=== PATIENT | male | born 1990 | race Caucasian/White ===

== ENCOUNTER 2018-09-19 06:10 | Day surgery (SDC) | payer BC ==
[~2018-09-19] VITALS: Ht 180.3 cm; Wt 89.5 kg
[2018-09-19] VITALS (9 sets, daily range): BP systolic 108–135; BP diastolic 60–94; Ht 180.3 cm; Wt 89.5 kg
[~2018-09-19 06:10] MED LIST: DEXILANT30 MG PO; ELAVIL10 MG PO
[2018-09-19] MEDS ORDERED: HYDROCODON-ACE1 EAC7 PO (13:32)
[2018-09-20 05:04] VITALS: BP 87/45
[2018-09-20 05:07] LABS: BASOPHILS 0 % (0-2); EOSINOPHILS 0.3 % (0-7); IMMATURE GRANULOCYTES 0.2 % (0-5); MCH 31.8 pg (26.0-34.0); MCHC 34.9 g/dL (31.0-37.0); MCV 91.1 fL (80.0-100.0); MEAN PLATELET VOLUME 10.6 fL (7.4-10.4); MONOCYTES 12.4 % (2-11); NEUTROPHILS 70.1 % (40-80); PLATELET COUNT 160 10x3/uL (130-400); RBC 4.72 10x6/uL (4.20-6.10); RDW 12.4 % (11.5-14.5); WBC 10.1 10x3/uL (4.8-10.8)
[2018-09-20 05:20] LABS: CALC OSMOLALITY 281 mosm/kg (275-300); CALCIUM 8.3 mg/dL (8.5-10.1); CARBON DIOXIDE 27.7 mmol/L (21.0-32.0); CHLORIDE - SERUM 106 mmol/L (98-107); CREATININE - SERUM 0.9 mg/dL (0.6-1.3); GLUCOSE 126 mg/dL (74-106); MAGNESIUM - SERUM 1.8 mg/dL (1.8-2.4); SODIUM 141 mmol/L (136-145); UREA NITROGEN 9 mg/dL (7-18); eGFR NON AFRICAN AMERICAN > 90 mL/min (90-120)
[2018-09-20 08:18] VITALS: BP 119/76
[2018-09-20] MEDS ORDERED: OXYCODONE HCL5 M1 PO (09:00)
[2018-09-20] MEDS ORDERED: ZOFRAN ODT4 MG/UDTAB PO (09:00)
[2018-09-20] MEDS ORDERED: FLOMAX0.4 MG PO (10:00)
== END 2018-09-20 10:48 | disposition home or self-care (01) ==
LOC: D.OPS 06:10 → D.PAN 08:00 → D.OPS 08:00 → D.MS 10:42 → D.OPS 09-20 10:48
PROVIDERS: Surgery
DX: K21.9 Gastro-esophageal reflux disease without esophagitis (principal); K44.9 Diaphragmatic hernia without obstruction or gangrene

== ENCOUNTER 2019-03-15 05:56 | Day surgery (SDC) | payer BC ==
[~2019-03-15] VITALS: Ht 177.8 cm; Wt 77.7 kg
[~2019-03-15 05:56] MED LIST changes: +FLOMAX0.4 MG PO; +HYDROCODON-ACE1 EAC7 PO; +OXYCODONE HCL5 M1 PO; +ZOFRAN ODT4 MG/UDTAB PO
[2019-03-15] MEDS ORDERED: VALIUM5 MG PO (06:50)
[2019-03-15 06:53] VITALS: BP 118/77; Ht 177.8 cm; Wt 77.7 kg
--- NOTE | 2019-03-15 08:20 | NUR ---
0818 BALLOON DILITATION 7-12 FOR 3 MINUTES WITH GOOD RESULTS
--- NOTE | 2019-03-15 08:26 | NUR ---
0826 14/5 BALLOON FOR 2 MINS 44.5
--- NOTE | 2019-03-15 09:39 | NUR ---
0930-DISCHARGE INSTRUCTIONS REVIEWED 0935-D/C HOME VIA WHEELCHAIR WITH FAMILY
== END 2019-03-15 09:35 | disposition home or self-care (01) ==
LOC: D.OPS 05:56
PROVIDERS: ATTEND Surgery
DX: R13.10 Dysphagia, unspecified (principal); Z01.812 Encounter for preprocedural laboratory examination

== ENCOUNTER 2019-05-25 06:25 | Day surgery (SDC) | payer BC ==
[~2019-05-25] VITALS: Ht 180.3 cm; Wt 77.3 kg
[~2019-05-25 06:25] MED LIST changes: +VALIUM5 MG PO
[2019-05-25] MEDS ORDERED: XANAX XR0.5 MG PO (08:00)
[2019-05-25 08:07] VITALS: BP 109/78; Ht 180.3 cm; Wt 77.3 kg
--- NOTE | 2019-05-25 09:40 | NUR ---
PATIENT AMBULATES TO BATHROOM AND VOIDS IN TOILET, AMBULATES WITHOUT DIZZINESS OR UNSTEADINESS. DISCHARGE INSTRUCTIONS REVIEWED WITH PATIENT
--- NOTE | 2019-05-25 09:49 | NUR ---
DISCHARGED HOME VIA WHEELCHAIR TO PRIVATE VEHILCE WITH MOTHER
== END 2019-05-25 09:49 | disposition home or self-care (01) ==
LOC: D.OPS 06:25
PROVIDERS: ATTEND Surgery
DX: R13.10 Dysphagia, unspecified (principal); K29.80 Duodenitis without bleeding; Z01.812 Encounter for preprocedural laboratory examination

== ENCOUNTER → 2019-06-22 12:34 | Outpatient (CLI) | payer BC ==
[2019-05-25 08:07] VITALS: BMI 23.7
[~2019-06-22 12:34] MED LIST changes: +XANAX XR0.5 MG PO
== END | disposition home or self-care (01) ==
LOC: D.RAD 12:34
PROVIDERS: ATTEND Family Medicine
DX: R13.14 Dysphagia, pharyngoesophageal phase (principal)

== ENCOUNTER 2020-05-27 07:30 | Inpatient (IN) | payer BC ==
[~2020-05-27] VITALS: Ht 180.3 cm; Wt 88.6 kg
[~2020-05-27 07:30] MED LIST changes: +REMERON30 MG PO
[2020-05-27 08:29] VITALS: BP 118/72; BMI 27.2
--- NOTE | 2020-05-27 11:14 | NUR ---
1114 PATIENT AROUSABLE, OPA DISCONTINUED. MAINTAINING PATENT AIRWAY
[2020-05-27 12:01] VITALS: BP 139/79
--- NOTE | 2020-05-27 12:05 | NUR ---
REC'D TO ROOM 2233 VIA STRETCHER EASILY TO AROUSED WHEN NAME IS CALLED. RESP EVEN AND UNLABORED WITH NO DISTRESS NOTED. CAN EXPRESS NEEDS AND WANTS. NO C/O NOTED OR VOICED AT THIS TIME. 5 LAP SITED NOTED TO ABD. RESTING WELL AT THIS TIME. C/L IN REACH A BEDSIDE.
--- NOTE | 2020-05-27 14:29 | NUR ---
BOLUS GIVEN AT THIS TIME. C/L IN REACH AT BEDSIDE.
[2020-05-27 15:57] VITALS: Ht 180.3 cm; Wt 88.6 kg
[2020-05-27 17:02] VITALS: BP 119/73
--- NOTE | 2020-05-27 19:00 | NUR ---
BEDSIDE REPORT RECEIVED AND CARE OF PT ASSUMED. PT LYING IN HIGH BOYKIN'S POSITION VISITING WITH FAMILY MEMBER. X5 LAP SITES WELL APPROXIMATED. IV TO LEFT HAND PATENT WITH LR INFUSING AT 75 ML/HR. 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 WILL MONITOR FOR NEEDS.
--- NOTE | 2020-05-27 19:53 | NUR ---
HS MEDICATIONS GIVEN. WILL CONTINUE TO MONITOR FOR NEEDS. FAMILY MEMBER IS AT BEDSIDE.
[2020-05-27 21:00] VITALS: BP 115/67
[2020-05-28 00:17] VITALS: BP 101/58
[2020-05-28 04:26] LABS: BASOPHILS 0.4 % (0-2); EOSINOPHILS 1.4 % (0-7); HEMATOCRIT 42.5 % (42.0-54.0); HEMOGLOBIN 14.1 g/dL (13.5-17.5); IMMATURE GRANULOCYTES 0.2 % (0-5); LYMPHOCYTES 11.9 % (15-50); MCH 30.4 pg (26.0-34.0); MCHC 33.2 g/dL (31.0-37.0); MCV 91.6 fL (80.0-100.0); MEAN PLATELET VOLUME 9.6 fL (7.4-10.4); MONOCYTES 12.2 % (2-11); NEUTROPHILS 73.9 % (40-80); PLATELET COUNT 162 10x3/uL (130-400); RBC 4.64 10x6/uL (4.20-6.10); RDW 12.5 % (11.5-14.5); WBC 8.1 10x3/uL (4.8-10.8)
[2020-05-28 04:50] LABS: ALBUMIN 3.1 g/dL (3.4-5.0); ALKALINE PHOSPHATASE 50 U/L (30-120); ALT (SGPT) 128 U/L (10-68); BILIRUBIN - TOTAL 0.59 mg/dL (0.2-1.3); CALC OSMOLALITY 277 mosm/kg (275-300); CALCIUM 8.1 mg/dL (8.5-10.1); CARBON DIOXIDE 29.8 mmol/L (21.0-32.0); CHLORIDE - SERUM 106 mmol/L (98-107); CREATININE - SERUM 0.8 mg/dL (0.6-1.3); GLUCOSE 90 mg/dL (74-106); POTASSIUM - SERUM 4.1 mmol/L (3.5-5.1); PROTEIN - SERUM 5.7 g/dL (6.4-8.2); SODIUM 140 mmol/L (136-145); UREA NITROGEN 10 mg/dL (7-18); eGFR NON AFRICAN AMERICAN > 90 mL/min (90-120)
[2020-05-28 05:30] VITALS: BP 109/61
--- NOTE | 2020-05-28 07:15 | NUR ---
REC'D IN BED AWAKE AND ALERT. RESP EVEN AND UNLABORED WITH NO DISTRESS NOTED. CAN EXPRESS NEEDS AND WANTS. 5 LAP SITES NOTED TO ABD. WITH STERI STRIPS INTACT. ASSESSMENT COMPLETED. C/L IN REACH AT BEDSIDE.
[2020-05-28 08:21] VITALS: BP 117/72
[2020-05-28] MEDS ORDERED: HYDROCODON-ACE1 EAC7 PO (10:20)
[2020-05-28] MEDS ORDERED: CYCLOBENZAPRINE10 MG PO (10:21)
--- NOTE | 2020-05-28 10:24 | OP ---
PATIENT NAME: SAUMYA DAVIS MEDICAL RECORD: [id number] :88 LOCATION:[id number] ADMISSION DATE:05/27/20 SURGEON: CHELSEA ZAMBRANO MD DATE OF OPERATION: 05/27/2020 SURGEON: Chelsea Zambrano MD PREOPERATIVE DIAGNOSES: Dysphagia, history of laparoscopic hiatal hernia repair and LINX procedure, esophageal stricture. POSTOPERATIVE DIAGNOSES: Dysphagia, history of laparoscopic hiatal hernia repair and LINX procedure, esophageal stricture. PROCEDURE PERFORMED: 1. Laparoscopic Preston fundoplication and LINX removal. 2. Esophagogastroduodenoscopy. ANESTHESIA: General. COMPLICATIONS: None. SPECIMENS: LINX antireflux device. ESTIMATED BLOOD LOSS: 60 cc. COMPLICATIONS: None. OPERATIVE COURSE: After consent was obtained, the patient was taken to the operating room and placed in supine position on the operating table. Next, general anesthesia was given via endotracheal intubation after a timeout was performed to confirm the correct patient and procedure. The abdomen was prepped and draped in typical sterile fashion. Ioban dressing was placed. Local anesthetic was injected just above the umbilicus. A stab incision was made with 11-blade trocar. Using a 10-mm bladeless optical trocar, the abdomen was entered under direct laparoscopic vision. Adequate pneumoperitoneum was achieved. The abdominal cavity was inspected. No evidence of bowel injury. No evidence of bleeding. The patient was placed in the steep reverse Trendelenburg position. All remaining trocars were placed, 11 mm trocar in the right lateral position, 5-mm trocar in the right lateral and left lateral positions, the Louise retractor in the subxiphoid position. The left lobe of liver was exposed, exposing gastroesophageal junction. Meticulous dissection was performed. There was an abundant amount of scar tissue including the capsule involved with the LINX device. Meticulous dissection was performed with electrocautery and [place] scissor dissection until the LINX device was identified. The LINX device was circumferentially dissected and the LINX device with 14 beats was removed. Due to the abundant amount of scarring, I did not feel that upsizing and replacing the magnetic device would be appropriate at this time as this portion of the procedure took a significantly longer time than normal. At this time, again crura was further divided out. Again, there was minimum of 3-4 cm of intra-abdominal esophagus with an intact hiatus from the prior repair. The cardia of the stomach was mobilized using the Harmonic scalpel. The short gastrics were taken with the Harmonic scalpel. Dissection continued along the cardia of the stomach to the splenic hilum and to the left crura allowing for complete circumferential dissection and mobilization for the wrap. At this time, the cardia of the stomach was passed posterior to the OPERATIVE REPORT [id number] SAUMYA DAVIS gastroesophageal junction and a loose floppy Preston was performed using 3-0 Stratafix. At this time, an EGD was performed. There was no evidence of mucosal injury to the esophagus. No evidence of perforation, no evidence of bleeding. The scope was passed through the GE junction with little to no resistance. The scope was advanced to the pylorus. The scope was then retracted and retroflexed. The GE junction intact with a wrap noted in good position, no hiatal hernia. The scope was straightened and stomach was desufflated. The scope was slowly withdrawn to the esophagus again. While at the GE junction, again insufflated air, there was no evidence of leak as the abdomen was filled with water to evaluate for leak. At this time, again stomach was desufflated the second time, the scope was withdrawn and the EGD portion was terminated. I scrubbed back into the case, copiously irrigating and suctioning the abdomen. No evidence of bleeding, no evidence of bowel injury. Raad was applied to the edges to the area of dissection for extra hemostasis. At this time, the Louise retractor was removed. The two 11-mm trocars removed and closed with 0 Vicryl suture and a Darnell-Zachary suture passer. The abdomen was again inspected, no evidence of bowel injury or bleeding. At this time, all remaining instruments removed. The abdomen was desufflated. Trocars removed. Skin was closed with 4-0 Monocryl, Mastisol and Steri-Strips. At the end of the case, all needle and instrument counts were correct. No complications occurred. TRANSINT:[id number] Voice Confirmation ID: [id number] DOCUMENT ID: [id number] CHELSEA ZAMBRANO MD at 1024 CC: [id number] DICTATION DATE: 05/27/20 6969 SECURITY SCREENER: 05/27/20 2158 ADM IN [facility] [address] [id number]
--- NOTE | 2020-05-28 11:15 | NUR ---
DC HOME AT THIS TIME VOICE UNDERSTANDING OF DC INSTRUCTION. IV DC. NO CONCERNS NOTED OR VOICE. STABLE CONDITION UPON DEPARTURE.
== END 2020-05-28 11:15 | disposition home or self-care (01) | DRG 328 ==
LOC: D.OPS 07:30 → D.PAN 09:00 → D.OPS 09:15 → D.PAN 09:30 → D.MS 11:09 → D.OPS 11:45 → D.MS 05-28 11:15
PROVIDERS: ADMIT Surgery; ATTEND Surgery
PROC: 0DV44ZZ Restriction of Esophagogastric Junction, Percutaneous Endoscopic Approach (ICD-10-PCS; principal; 2020-05-27 09:00)
DX: R13.10 Dysphagia, unspecified (principal); R11.2 Nausea with vomiting, unspecified; K21.0 Gastro-esophageal reflux disease with esophagitis; K44.9 Diaphragmatic hernia without obstruction or gangrene; K22.2 Esophageal obstruction